=== PATIENT | male | born 1955 | race Asian ===

== ENCOUNTER 2016-10-26 10:55 | Emergency (ER) | payer MEDICAID ==
[~2016-10-26] VITALS: Ht 162.6 cm; Wt 70.0 kg
[2016-10-26 11:20] VITALS: BP 122/78
[2016-10-26 12:31] LABS: BASOPHILS % 0.3 % (0.0-2.0); EOSINOPHILS % 1.8 % (0.0-5.0); HEMOGLOBIN. 13.5 g/dL (14.0-18.0); LYMPHOCYTES % 20.7 % (20.0-50.0); MEAN CORPUSCULAR HEMOGLOBIN 33.7 pg (28.0-32.0); MEAN CORPUSCULAR HGB CONC 34.6 g/dL (31.0-37.0); MEAN CORPUSCULAR VOLUME 97.5 fL (80.0-94.0); MEAN PLATELET VOLUME 7.2 fl (7.4-10.4); MONOCYTES % 8.4 % (2.0-8.0); NEUTROPHILS % 68.8 % (40.0-76.0); PLATELET 179 x1000/uL (130-400); RED CELL DISTRIBUTION WIDTH 13.9 % (11.6-14.6); WHITE BLOOD COUNT 8.1 x1000/uL (4.5-11.0)
[2016-10-26 12:38] LABS: INR 1.1; PROTHROMBIN TIME 11.5 sec
[2016-10-26 12:46] LABS: ALANINE AMINOTRANSFERASE 44 IU/L (13-61); ALBUMIN 2.7 g/dL (3.4-5.0); ANION GAP 11; CALCIUM 8.7 mg/dL (8.5-10.1); CARBON DIOXIDE 27 mEq/L (21-32); CHLORIDE 102 mEq/L (98-107); INDEX HEMOLYSI 1 (1-3); INDEX ICTERIC 1 (1-4); INDEX LIPEMIC 1 (1-3); TROPONIN I < 0.02 ng/mL (0.00-0.04); UREA NITROGEN BLOOD 13 mg/dL (7-21); eGFR > 60 mL/min (>60)
[2016-10-26 12:47] LABS: NT PRO B-TYPE NATRIURETIC PEP 123 pg/mL (5-125)
[2016-10-26] MEDS ORDERED: LEVOFLOXACIN 500MG TABLET PO ONE (13:15)
== END 2016-10-26 13:57 | disposition home or self-care (01) ==
LOC: ER 11:07
DX: J18.9 Pneumonia, unspecified organism (principal); I10 Essential (primary) hypertension; Z90.49 Acquired absence of other specified parts of digestive tract
CPT/HCPCS: 36415; 71010; 80053; 83605; 83880; 84484; 85025; 85610; 87040; 93005; 99285

== ENCOUNTER 2017-03-31 09:01 | Emergency (ER) | payer MEDICAID ==
[~2017-03-31] VITALS: Ht 170.2 cm; Wt 65.0 kg
[2017-03-31 10:53] VITALS: BP 128/74
== END 2017-03-31 10:54 | disposition home or self-care (01) ==
LOC: ER 10:23
DX: M25.572 Pain in left ankle and joints of left foot (principal); W57.XXXA Bitten or stung by nonvenomous insect and other nonvenomous arthropods, initial encounter
CPT/HCPCS: 99283